=== PATIENT | male | born 1960 | race Two or more races ===

== ENCOUNTER 2019-04-29 11:45 | Emergency (ER) | payer OTHER, MEDICAID ==
[~2019-04-29] VITALS: Ht 167.6 cm; Wt 65.8 kg
[2019-04-29] MEDS ORDERED: ACETAMINOPHEN 325 MG TABLET PO ONE (12:30)
[2019-04-29] MEDS ORDERED: ACETAMINOPHEN ES 500 MG TABLET ONE (12:34)
--- NOTE | 2019-04-29 14:03 | NUR ---
[id number], homeless, c/o r rib pain x 2 days 12/21 ps. placed on monitor and pulse ox.
--- NOTE | 2019-04-29 14:34 | NUR ---
Patient discharged to home in stable condition. Written and verbal after care instructions given. Patient verbalizes understanding of instruction and RX. Pambulatory with a steady gait. Homeless paper filled.
[2019-04-29 14:35] VITALS: BP 136/82
== END 2019-04-29 14:35 | disposition home or self-care (01) ==
LOC: ER 11:47
DX: R07.81 Pleurodynia (principal); E11.9 Type 2 diabetes mellitus without complications
CPT/HCPCS: 71100-TC